=== PATIENT | male | born 1955 | race Caucasian/White ===

== ENCOUNTER 2021-10-07 06:20 | Day surgery (SDC) | payer MEDICARE, OTHER ==
[~2021-10-07 06:20] MED LIST: Lactated Ringers 1,000 ML IV SCH; Sodium Chloride 0.9% 10 ML Syringe FLUSH PRN
[2021-10-07] MEDS ORDERED: Propofol 200 MG/20 ML SDV IV ONE (06:21)
== END 2021-10-07 08:58 | disposition home or self-care (01) ==
LOC: FB.SDS 06:20
PROVIDERS: ATTEND Surgery
DX: D12.7 Benign neoplasm of rectosigmoid junction (principal); K57.30 Diverticulosis of large intestine without perforation or abscess without bleeding; Z88.0 Allergy status to penicillin; Z91.030 Bee allergy status; Z80.0 Family history of malignant neoplasm of digestive organs
CPT/HCPCS: 00812-QZ; 88305; J2704; J7120